=== PATIENT | female | born 1995 | race Two or more races ===

== ENCOUNTER 2018-10-16 19:13 | Emergency (ER) | payer SELFPAY ==
[~2018-10-16] VITALS: Ht 160 cm; Wt 103.0 kg
[2018-10-16 19:37] LABS: BILIRUBIN,URINE NEGATIVE (NEG); CLARITY,URINE CLEAR; COLOR,URINE YELLOW; NITRITE,URINE NEGATIVE (NEG); PH,URINE 5.5; PROTEIN,URINE NEGATIVE (NEG-TRACE); UROBILINOGEN,URINE 0.2 mg/dL (0.2 mg/dL)
[2018-10-16 19:42] LABS: BACTERIA,URINE 0 /HPF (0-FEW); RBC,URINE 0 /HPF (0-2); SQUAMOUS EPITHELIAL CELL,UR MOD /LPF
[2018-10-16 20:07] LABS: AMPHETAMINE/METHAMPHETAMINE NEG (NEG); BARBITURATES NEG (NEG); BENZODIAZEPINES NEG (NEG); CANNABINOIDS POS (NEG); COCAINE NEG (NEG); METHADONE NEG (NEG); OPIATES NEG (NEG); PHENCYCLIDINE NEG (NEG)
[2018-10-16 20:10] LABS: BASO % 0 % (0-3); EOS # 0.1 x10^3/uL (0.0-0.7); EOS % 2 % (0-3); HEMATOCRIT 37.3 % (36.0-47.0); HEMOGLOBIN 11.8 g/dL (12.0-15.5); LYMPH # 3.1 x10^3/uL (1.0-4.8); LYMPH % 37 % (24-48); MEAN CORPUSCULAR HEMOGLOBIN 24 pg (25-35); MEAN CORPUSCULAR HGB CONC 32 g/dL (31-37); MEAN CORPUSCULAR VOLUME 75 fL (79-100); MONO # 0.5 x10^3/uL (0.0-1.1); MONO % 6 % (0-9); NEUT # 4.8 x10^3uL (1.8-7.7); NEUT % 56 % (31-73); PLATELET COUNT 302 x10^3/uL (140-400); RED BLOOD COUNT 4.95 x10^6/uL (3.50-5.40); RED CELL DISTRIBUTION WIDTH 20.5 % (11.5-14.5); WHITE BLOOD COUNT 8.6 x10^3/uL (4.0-11.0)
[2018-10-16 20:25] LABS: CREATININE 0.9 mg/dL (0.6-1.0); GFR 77.6; POTASSIUM 3.4 mmol/L (3.5-5.1)
[2018-10-16] MEDS ORDERED: ONDANSETRON PF 4 MG/2 ML VIAL. IV ONE (20:30)
[2018-10-16] MEDS ORDERED: IV NORMAL SALINE 1000ML BAG 1,000 ML IV ONE (20:30)
[2018-10-16] MEDS ORDERED: fentaNYL PF VIAL 100 MCG/2 ML VIAL IV ONE (20:30)
--- NOTE | 2018-10-16 20:32 | PHYS DOC ---
Past Medical History Past Medical History: Gallstones Past Surgical History: Alcohol Use: None Drug Use: None Adult General Chief Complaint Chief Complaint: ABDOMINAL PAIN HPI HPI Patient is a 22 year old female with history of gallstones who presents to the ED today complaining of 10 out of 10 right upper quadrant abdominal pain that began at 1900 today. Patient states he was at a [employer] when this pain began, she states she had had some chicken as well as nachos before her pain started. She states she has known history of gallbladder problems and had stents placed 3 weeks ago. She states she has a follow-up appointment with her general surgeon at [facility] on October 20, 2018. Patient denies any nausea vomiting. Denies any fever or diarrhea. She also states she had a 7 weeks ago. Denies any lower abdominal pain, denies any vaginal bleeding. She believes her current pain is related to her gallbladder. Review of Systems Review of Systems Constitutional: Denies fever or chills [] Eyes: Denies change in visual acuity, redness, or eye pain [] HENT: Denies nasal congestion or sore throat [] Respiratory: Denies cough or shortness of breath [] Cardiovascular: No additional information not addressed in HPI [] GI: Reports right upper quadrant abdominal pain, denies nausea, vomiting, bloody stools or diarrhea [] : Denies dysuria or hematuria [] Musculoskeletal: Denies back pain or joint pain [] Integument: Denies rash or skin lesions [] Neurologic: Denies headache, focal weakness or sensory changes [] Endocrine: Denies polyuria or polydipsia [] All other systems were reviewed and found to be within normal limits, except as documented in this note. Current Medications Current Medications Current Medications Medications (Trade) Dose Ordered Sig/[facility] Start Time Stop Time Status Last Admin Dose Admin Fentanyl Citrate (Fentanyl 2ml Vial) 50 mcg 1X ONCE 10/16/18 20:30 10/16/18 20:31 DC 10/16/18 20:51 50 MCG Ondansetron HCl (Zofran) 4 mg 1X ONCE 10/16/18 20:30 10/16/18 20:31 DC 10/16/18 20:50 4 MG Sodium Chloride 1,000 ml @ 1,000 mls/hr 1X ONCE 10/16/18 20:30 10/16/18 21:29 10/16/18 20:49 1,000 MLS/HR Allergies Allergies Allergies Coded Allergies Type Severity Reaction Last Updated Verified No Known Drug Allergies 10/16/18 No Physical Exam Physical Exam Constitutional: Well developed, well nourished, no acute distress, non-toxic appearance. [] HENT: Normocephalic, atraumatic, bilateral external ears normal, oropharynx moist, no oral exudates, nose normal. [] Eyes: PERRLA, EOMI, conjunctiva normal, no discharge. [] Neck: Normal range of motion, no tenderness, supple, no stridor. [] Cardiovascular:Heart rate regular rhythm, no murmur [] Lungs & Thorax: Bilateral breath sounds clear to auscultation [] Abdomen: Bowel sounds normal, soft, mild tenderness to the right upper quadrant with negative Sagastume sign, and no right lower quadrant or left lower quadrant or left upper quadrant tenderness, no masses, no pulsatile masses. [] Skin: Warm, dry, no erythema, no rash. [] Back: No tenderness, no CVA tenderness. [] Extremities: No tenderness, no cyanosis, no clubbing, ROM intact, no edema. [] Neurologic: Alert and oriented X 3, normal motor function, normal sensory fun ction, no focal deficits noted. [] Psychologic: Affect normal, judgement normal, mood normal. [] Current Patient Data Vital Signs Vital Signs Date Time Temp Pulse Resp B/P (MAP) Pulse Ox O2 Delivery O2 Flow Rate FiO2 10/16/18 20:51 14 100 Room Air 10/16/18 19:45 97.8 61 116/63 (80) 97.8 Lab Values Laboratory Tests Test 10/16/18 19:30 10/16/18 19:32 10/16/18 20:00 Urine Collection Type Unknown Urine Color Yellow Urine Clarity Clear Urine pH 5.5 Urine Specific [place] 1.020 Urine Protein Negative mg/dL (NEG-TRACE) Urine Glucose (UA) Negative mg/dL (NEG) Urine Ketones (Stick) Negative mg/dL (NEG) Urine Blood Negative (NEG) Urine Nitrite Negative (NEG) Urine Bilirubin Negative (NEG) Urine Urobilinogen Dipstick 0.2 mg/dL (0.2 mg/dL) Urine Leukocyte Esterase Trace (NEG) Urine RBC 0 /HPF (0-2) Urine WBC 5-10 /HPF (0-4) Urine Squamous Epithelial Cells Mod /LPF Urine Bacteria 0 /HPF (0-FEW) Urine Mucus Mod /LPF Urine Opiates Screen Neg (NEG) Urine Methadone Screen Neg (NEG) Urine Barbiturates Neg (NEG) Urine Phencyclidine Screen Neg (NEG) Urine Amphetamine/Methamphetamine Neg (NEG) Urine Benzodiazepines Screen Neg (NEG) Urine Cocaine Screen Neg (NEG) Urine Cannabinoids Screen Pos (NEG) Urine Ethyl Alcohol Neg (NEG) POC Urine HCG, Qualitative Hcg negative (Negative) White Blood Count 8.6 x10^3/uL (4.0-11.0) Red Blood Count 4.95 x10^6/uL (3.50-5.40) Hemoglobin 11.8 g/dL (12.0-15.5) L Hematocrit 37.3 % (36.0-47.0) Mean Corpuscular Volume 75 fL (79-100) L Mean Corpuscular Hemoglobin 24 pg (25-35) L Mean Corpuscular Hemoglobin Concent 32 g/dL (31-37) Red Cell Distribution Width 20.5 % (11.5-14.5) H Platelet Count 302 x10^3/uL (140-400) Neutrophils (%) (Auto) 56 % (31-73) Lymphocytes (%) (Auto) 37 % (24-48) Monocytes (%) (Auto) 6 % (0-9) Eosinophils (%) (Auto) 2 % (0-3) Basophils (%) (Auto) 0 % (0-3) Neutrophils # (Auto) 4.8 x10^3uL (1.8-7.7) Lymphocytes # (Auto) 3.1 x10^3/uL (1.0-4.8) Monocytes # (Auto) 0.5 x10^3/uL (0.0-1.1) Eosinophils # (Auto) 0.1 x10^3/uL (0.0-0.7) Basophils # (Auto) 0.0 x10^3/uL (0.0-0.2) Platelet Estimate Adequate (ADEQUATE) Giant Platelets Occ Hypochromasia Slight Poikilocytosis Slight Anisocytosis Mod Tear Drop Cells Few Ovalocytes Few Sodium Level 142 mmol/L (136-145) Potassium Level 3.4 mmol/L (3.5-5.1) L Chloride Level 105 mmol/L (98-107) Carbon Dioxide Level 26 mmol/L (21-32) Anion Gap 11 (6-14) Blood Urea Nitrogen 18 mg/dL (7-20) Creatinine 0.9 mg/dL (0.6-1.0) Estimated GFR (Cockcroft-Gault) 77.6 BUN/Creatinine Ratio 20 (6-20) Glucose Level 90 mg/dL (70-99) Calcium Level 9.0 mg/dL (8.5-10.1) Total Bilirubin 0.4 mg/dL (0.2-1.0) Aspartate Amino Transferase (AST) 44 U/L (15-37) H Alanine Aminotransferase (ALT) 32 U/L (14-59) Alkaline Phosphatase 130 U/L (46-116) H Total Protein 7.8 g/dL (6.4-8.2) Albumin 3.6 g/dL (3.4-5.0) Albumin/Globulin Ratio 0.9 (1.0-1.7) L Lipase 193 U/L (73-393) Ethyl Alcohol Level < 10 mg/dL (0-10) Laboratory Tests 10/16/18 20:00 Laboratory Tests 10/16/18 20:00 EKG EKG [] Radiology/Procedures Radiology/Procedures []PROCEDURE: ABDOMEN LTD Examination: ABDOMEN LTD History: RUQ PAIN Comparison/Correlation: None Findings: Limited right upper quadrant ultrasound exam was performed. Multiple small calculi are present within the gallbladder. Gallbladder is mostly decompressed as the patient reportedly ate one hour ago. No significant gallbladder wall thickening as result is suspected. Hepatic echotexture is normal. Common bile duct is not delineated. No biliary dilatation. Proximal pancreas is normal. Distal pancreas is obscured by bowel gas. Right kidney measures 11.8 cm x 5.9 cm x 4.9 cm. No right hydronephrosis. Inferior vena cava is unremarkable. No right upper quadrant ascites. No pericholecystic fluid. Portal venous flow is normal. Impression: Cholelithiasis. No acute findings. Electronically signed by: Janet Chandler MD (10/16/2018 8:38 PM) [facility] DICTATED and SIGNED BY: JANET CHANDLER MD DATE: 10/16/182037 Course & Med Decision Making Course & Med Decision Making Pertinent Labs and Imaging studies reviewed. (See chart for details) This is a 22-year-old female patient with known history of cholelithiasis presenting to the ED today complaining of right upper quadrant abdominal pain that began after eating at a [employer] today. CBC, lipase, no acute findings, CMP with AST of 44, ALT is normal, K0 1:30, urine analysis is negative for infection, urine test is negative. Right upper quadrant abdominal ultrasound noted for cholelithiasis, no acute findings. Patient is in no distress. We discussed diet related to cholelithiasis. She has an appointment with her general surgeon on October 20, 2018, she was encouraged to make sure she follows up. She was discharged in stable condition Dragon Disclaimer Dragon Disclaimer This electronic medical record was generated, in whole or in part, using a voice recognition dictation system. Departure Departure Impression: Primary Impression: Cholelithiasis Disposition: 01 HOME, SELF-CARE Condition: STABLE Referrals: [facility] (PCP) Follow up on October 20, 2018 as scheduled Patient Instructions: Cholelithiasis, [id number] Additional Instructions: You were evaluated in the emergency room for abdominal pain, your work up was noted for cholelithiasis otherwise no acute findings, follow-up with your own surgeon on October 20, 2018 as scheduled. Come back to the ED at any point symptoms worsen. Problem Qualifiers Primary Impression: Cholelithiasis Cholelithiasis location: gallbladder Cholecystitis presence: without cholecystitis Biliary obstruction: without biliary obstruction Qualified Codes: K80.20 - Calculus of gallbladder without cholecystitis without obstruction MAGALYS MAR APRN Oct 16, 2018 20:32
[2018-10-16 20:34] LABS: ALBUMIN 3.6 g/dL (3.4-5.0); ALBUMIN/GLOBULIN RATIO 0.9 (1.0-1.7); TOTAL BILIRUBIN 0.4 mg/dL (0.2-1.0); TOTAL PROTEIN 7.8 g/dL (6.4-8.2)
--- NOTE | 2018-10-16 20:41 | RAD ---
Examination: ABDOMEN LTD History: RUQ PAIN Comparison/Correlation: None Findings: Limited right upper quadrant ultrasound exam was performed. Multiple small calculi are present within the gallbladder. Gallbladder is mostly decompressed as the patient reportedly ate one hour ago. No significant gallbladder wall thickening as result is suspected. Hepatic echotexture is normal. Common bile duct is not delineated. No biliary dilatation. Proximal pancreas is normal. Distal pancreas is obscured by bowel gas. Right kidney measures 11.8 cm x 5.9 cm x 4.9 cm. No right hydronephrosis. Inferior vena cava is unremarkable. No right upper quadrant ascites. No pericholecystic fluid. Portal venous flow is normal. Impression: Cholelithiasis. No acute findings. Electronically signed by: Jack Gould MD (10/16/2018 8:38 PM) [id number]
[2018-10-16 20:45] LABS: PLT ESTIMATE ADEQUATE (ADEQUATE)
[2018-10-16 20:46] LABS: ANISOCYTOSIS MOD; HYPOCHROMIA SLIGHT; OVALOCYTES FEW; POIKILOCYTOSIS SLIGHT; TEAR DROP CELLS FEW
[2018-10-16 21:20] VITALS: BP 135/74
== END 2018-10-16 21:25 | disposition home or self-care (01) ==
LOC: ER 19:13
DX: K80.20 Calculus of gallbladder without cholecystitis without obstruction (principal); Z98.890 Other specified postprocedural states
CPT/HCPCS: 36415; 76705; 80053; 80307; 81001; 81025; 83690; 85025; 87086; 96374; 96375; 99285; G0480; J2405; J3010; J7030